=== PATIENT | female | born 1985 | race Caucasian/White ===

== ENCOUNTER 2017-03-17 09:09 | Outpatient (CLI) | payer MEDICAID | END 2017-03-17 10:57 | disposition home or self-care (01) | LOC: OBT 09:09 → L-D 09:09 → OBT 10:57 | DX: O9A.212 Injury, poisoning and certain other consequences of external causes complicating pregnancy, second trimester (principal); Z3A.24 24 weeks gestation of pregnancy | CPT/HCPCS: 36415; 76815; 85460 ==

== ENCOUNTER 2017-04-07 19:43 | Inpatient (IN) | payer MEDICAID ==
[2017-04-07 22:01] LABS: ADD MAN DIFF? NO
[2017-04-07 22:04] LABS: WHITE BLOOD COUNT 16.9 10^3/ul (4.8-10.8)
[2017-04-07 22:04] LABS: BASOPHIL # 0.1 10^3/ul (0.0-0.1); BASOPHILS % 0.3 % (0.0-2.0); EOSINOPHILS # 0.1 10^3/ul (0.0-0.5); EOSINOPHILS % 0.4 % (0.0-7.0); HEMATOCRIT 34.3 % (37.0-47.0); HEMOGLOBIN 11.5 g/dl (12.0-16.0); LYMPHOCYTES % 17.5 % (15.0-51.0); MEAN CORPUSCULAR HGB CONC 33.5 g/dl (32.0-37.0); MEAN CORPUSCULAR VOLUME 92.5 fl (82.0-101.0); MEAN PLATELET VOLUME 10.2 fl (7.4-10.4); MONOCYTE # 1.5 10^3/ul (0.3-0.9); MONOCYTES % 8.8 % (0.0-11.0); NEUTROPHIL # 12.1 10^3/ul (1.6-7.5); NEUTROPHILS % 71.6 % (39.0-77.0); PLATELET COUNT 264 10^3/UL (140-415); RED BLOOD COUNT 3.71 10^6/ul (4.20-5.40)
[2017-04-07 22:13] LABS: ADD UMIC YES; UR ASCORBIC ACID NEGATIVE (NEGATIVE); UR BACTERIA FEW /HPF (NONE SEEN); UR BILIRUBIN (Dip) NEGATIVE (NEGATIVE); UR BLOOD (Dip) NEGATIVE (NEGATIVE); UR CLARITY CLOUDY (CLEAR); UR COLOR YELLOW (YELLOW); UR GLUCOSE (Dip) NEGATIVE (NEGATIVE); UR KETONES (Dip) NEGATIVE (NEGATIVE); UR LEUKOCYTE ESTERASE (Dip) 3+ Leu/ul (NEGATIVE); UR NITRITE (Dip) POSITIVE (NEGATIVE); UR RBC 3 /HPF (0-5); UR SPECIFIC GRAVITY (Dip) 1.013 (1.003-1.030); UR SQUAMOUS EPITHELIAL CELL FEW /HPF (FEW); UR TOTAL PROTEIN (Dip) 1+ mg/dl (NEGATIVE); UR UROBILINOGEN (Dip) 1+ mg/dL (NEGATIVE); UR WBC 84 /HPF (0-5)
[2017-04-07 22:24] LABS: ALANINE AMINOTRANSFERASE 32 IU/L (13-69); ALBUMIN 3.4 g/dl (3.3-4.9); ALBUMIN/GLOBULIN RATIO 0.94; ALKALINE PHOSPHATASE 125 IU/L (42-121); ANION GAP 12 (8-16); ASPARTATE AMINO TRANSFERASE 26 IU/L (15-46); BILIRUBIN,INDIRECT 0.1 mg/dl (0-1.1); BILIRUBIN,TOTAL 0.1 mg/dl (0.2-1.3); BLOOD UREA NITROGEN 6 mg/dl (7-20); CALCIUM 9.3 mg/dl (8.4-10.2); CARBON DIOXIDE 23 mmol/L (21-31); CHLORIDE 104 mmol/L (97-110); CREATININE 0.48 mg/dl (0.44-1.00); GLUCOSE 87 mg/dl (70-220); POTASSIUM 3.9 mmol/L (3.5-5.1); SODIUM 135 mmol/L (135-144)
[2017-04-08] MEDS: SOD CHLORIDE 0.9% 1,000 ML IV ×3 (00:54→23:13)
[2017-04-08] MEDS: MAGNESIUM SULFATE 4 GM/100 ML 100 ML IV (00:56)
[2017-04-08] MEDS: BETAMET NA PHOS/AC(6 MG/ML) 5ML INJ IM (00:58)
[2017-04-08] MEDS: CEFTRIAXONE 1 GM/50 ML (PMX) 50 ML IV (01:28)
[2017-04-08] MEDS: MAGNESIUM SULFATE 20 GM/500 ML 500 ML IV ×2 (01:30→11:44)
[2017-04-08 08:25] LABS: MAGNESIUM 5.4 mg/dl (1.7-2.5)
[2017-04-08] MEDS ORDERED: PRENATAL VITAMIN PO (09:00)
[2017-04-08 12:34] LABS: MAGNESIUM 5.8 mg/dl (1.7-2.5)
[2017-04-08 20:07] LABS: MAGNESIUM 5.5 mg/dl (1.7-2.5)
[2017-04-09] MEDS: CEFTRIAXONE 1 GM/50 ML (PMX) 50 ML IV (00:17)
[2017-04-09] MEDS: SOD CHLORIDE 0.9% 1,000 ML IV ×4 (00:17→22:58)
[2017-04-09] MEDS: BETAMET NA PHOS/AC(6 MG/ML) 5ML INJ IM (00:18)
[2017-04-09] MEDS: MAGNESIUM SULFATE 20 GM/500 ML 500 ML IV (01:36)
[2017-04-09 01:53] LABS: MAGNESIUM 4.7 mg/dl (1.7-2.5)
[2017-04-09 08:44] LABS: MAGNESIUM 4.6 mg/dl (1.7-2.5)
[2017-04-09 14:59] LABS: MAGNESIUM 4.4 mg/dl (1.7-2.5)
[2017-04-09] MEDS: NIFEdipine 10 MG CAP PO (18:26)
[2017-04-10] MEDS: CEFTRIAXONE 1 GM/50 ML (PMX) 50 ML IV (00:03)
[2017-04-10] MEDS: NIFEdipine 10 MG CAP PO ×5 (00:04→23:38)
[2017-04-10] MEDS: NITROFURANTOIN (SR) 100 MG CAP PO ×2 (11:16→20:49)
[2017-04-11] MEDS: NIFEdipine 10 MG CAP PO ×4 (06:03→23:53)
[2017-04-11] MEDS ORDERED: PRENATAL VITAMIN PO (08:00)
[2017-04-11] MEDS: PRENATAL VITAMIN PO (08:42)
[2017-04-11] MEDS: NITROFURANTOIN (SR) 100 MG CAP PO ×2 (08:42→21:12)
[2017-04-11] MEDS: FERROUS SULFATE (EC) 325 MG TAB PO (08:42)
[2017-04-12] MEDS: NIFEdipine 10 MG CAP PO ×4 (06:00→23:38)
[2017-04-12] MEDS: NITROFURANTOIN (SR) 100 MG CAP PO ×2 (09:34→21:00)
[2017-04-12] MEDS: FERROUS SULFATE (EC) 325 MG TAB PO (09:34)
[2017-04-12] MEDS: PRENATAL VITAMIN PO (09:34)
[2017-04-13] MEDS: NIFEdipine 10 MG CAP PO ×4 (05:49→23:48)
[2017-04-13] MEDS: NITROFURANTOIN (SR) 100 MG CAP PO ×2 (08:48→20:46)
[2017-04-13] MEDS: PRENATAL VITAMIN PO (08:48)
[2017-04-13] MEDS: FERROUS SULFATE (EC) 325 MG TAB PO (08:48)
[2017-04-13 11:45] LABS: ADD MAN DIFF? NO
[2017-04-13 11:51] LABS: WHITE BLOOD COUNT 15.4 10^3/ul (4.8-10.8)
[2017-04-13 11:51] LABS: BASOPHILS % 0.3 % (0.0-2.0); EOSINOPHILS # 0.1 10^3/ul (0.0-0.5); EOSINOPHILS % 0.7 % (0.0-7.0); HEMOGLOBIN 10.9 g/dl (12.0-16.0); LYMPHOCYTES # 2.8 10^3/ul (0.8-2.9); LYMPHOCYTES % 17.9 % (15.0-51.0); MEAN CORPUSCULAR HEMOGLOBIN 30.4 pg (29.0-33.0); MEAN CORPUSCULAR VOLUME 92.2 fl (82.0-101.0); MEAN PLATELET VOLUME 10.5 fl (7.4-10.4); MONOCYTE # 1.2 10^3/ul (0.3-0.9); MONOCYTES % 7.8 % (0.0-11.0); NEUTROPHIL # 10.9 10^3/ul (1.6-7.5); NEUTROPHILS % 70.8 % (39.0-77.0); PLATELET COUNT 305 10^3/UL (140-415); RED BLOOD COUNT 3.58 10^6/ul (4.20-5.40); RED CELL DISTRIBUTION WIDTH 14.3 % (11.5-14.5)
[2017-04-14] MEDS: NIFEdipine 10 MG CAP PO ×4 (05:57→23:56)
[2017-04-14] MEDS: PRENATAL VITAMIN PO (08:36)
[2017-04-14] MEDS: NITROFURANTOIN (SR) 100 MG CAP PO ×2 (08:36→21:20)
[2017-04-14] MEDS: FERROUS SULFATE (EC) 325 MG TAB PO (08:36)
[2017-04-15] MEDS: NIFEdipine 10 MG CAP PO ×4 (05:56→23:55)
[2017-04-15] MEDS: NITROFURANTOIN (SR) 100 MG CAP PO ×2 (08:30→21:23)
[2017-04-15] MEDS: PRENATAL VITAMIN PO (08:30)
[2017-04-15] MEDS: FERROUS SULFATE (EC) 325 MG TAB PO (08:30)
[2017-04-16] MEDS: NIFEdipine 10 MG CAP PO ×3 (05:55→18:02)
[2017-04-16] MEDS: PRENATAL VITAMIN PO (09:07)
[2017-04-16] MEDS: NITROFURANTOIN (SR) 100 MG CAP PO ×2 (09:07→21:21)
[2017-04-16] MEDS: FERROUS SULFATE (EC) 325 MG TAB PO (09:07)
[2017-04-17] MEDS: NIFEdipine 10 MG CAP PO ×4 (00:10→18:18)
[2017-04-17] MEDS: NITROFURANTOIN (SR) 100 MG CAP PO ×2 (09:30→21:17)
[2017-04-17] MEDS: FERROUS SULFATE (EC) 325 MG TAB PO (09:30)
[2017-04-17] MEDS: PRENATAL VITAMIN PO (09:30)
[2017-04-18] MEDS: NIFEdipine 10 MG CAP PO ×4 (00:10→18:08)
[2017-04-18] MEDS: FERROUS SULFATE (EC) 325 MG TAB PO (08:54)
[2017-04-18] MEDS: PRENATAL VITAMIN PO (08:54)
[2017-04-18] MEDS: NITROFURANTOIN (SR) 100 MG CAP PO ×2 (08:54→21:12)
[2017-04-19] MEDS: NIFEdipine 10 MG CAP PO ×5 (00:09→23:48)
[2017-04-19] MEDS: FERROUS SULFATE (EC) 325 MG TAB PO (08:57)
[2017-04-19] MEDS: NITROFURANTOIN (SR) 100 MG CAP PO (08:57)
[2017-04-19] MEDS: PRENATAL VITAMIN PO (08:57)
[2017-04-20] MEDS: NIFEdipine 10 MG CAP PO ×3 (05:58→17:36)
[2017-04-20] MEDS: PRENATAL VITAMIN PO (08:30)
[2017-04-20] MEDS: FERROUS SULFATE (EC) 325 MG TAB PO (08:30)
[2017-04-21] MEDS: NIFEdipine 10 MG CAP PO ×5 (05:43→23:48)
[2017-04-21] MEDS: FERROUS SULFATE (EC) 325 MG TAB PO (08:31)
[2017-04-21] MEDS: PRENATAL VITAMIN PO (08:31)
[2017-04-22] MEDS: NIFEdipine 10 MG CAP PO ×4 (05:37→23:54)
[2017-04-22] MEDS: FERROUS SULFATE (EC) 325 MG TAB PO (09:33)
[2017-04-22] MEDS: PRENATAL VITAMIN PO (09:33)
[2017-04-23] MEDS: NIFEdipine 10 MG CAP PO ×3 (06:08→17:42)
[2017-04-23] MEDS: PRENATAL VITAMIN PO (09:16)
[2017-04-23] MEDS: FERROUS SULFATE (EC) 325 MG TAB PO (09:16)
== END 2017-04-23 18:15 | disposition left against medical advice (07) | DRG 781 ==
LOC: OBT 19:43 → L-D 19:45 → PP1 04-09 20:06 → L-D 19:52
DX: O23.03 Infections of kidney in pregnancy, third trimester (principal); O26.873 Cervical shortening, third trimester; Z3A.30 30 weeks gestation of pregnancy
CPT/HCPCS: 36415; 76815; 76817; 76818; 80053; 81001; 82731; 83735; 85025; 87086

== ENCOUNTER 2017-06-19 21:50 | Inpatient (IN) | payer MEDICAID ==
[2017-06-19] MEDS ORDERED: CARBOPROST 250 MCG INJ IM (23:00)
[2017-06-19] MEDS ORDERED: CEFAZOLIN 2 GM/50 ML (PMX) 50 ML IV (23:00)
[2017-06-19] MEDS ORDERED: MISOPROSTOL 200 MCG TAB PR (23:00)
[2017-06-19] MEDS ORDERED: METHYLERGONOVINE 0.2 MG INJ IM (23:00)
[2017-06-19] MEDS ORDERED: OXYTOCIN 30 UNITS/LR 500 ML IV (23:00)
[2017-06-19] MEDS: LACTATED RINGER'S 1,000 ML IV (23:14)
[2017-06-19] MEDS: FAMOTIDINE 20 MG INJ IV (23:34)
[2017-06-19] MEDS: METOCLOPRAMIDE 10 MG INJ IV (23:34)
[2017-06-19] MEDS: CITRIC ACID/SODIUM CITRATE 15 ML CUP PO (23:35)
[2017-06-19 23:59] LABS: ADD MAN DIFF? NO
[2017-06-20] MEDS: LACTATED RINGER'S 1,000 ML IV ×2 (00:09→14:48)
[2017-06-20 00:11] LABS: WHITE BLOOD COUNT 15.8 10^3/ul (4.8-10.8)
[2017-06-20 00:11] LABS: BASOPHIL # 0.1 10^3/ul (0.0-0.1); BASOPHILS % 0.4 % (0.0-2.0); EOSINOPHILS # 0.1 10^3/ul (0.0-0.5); EOSINOPHILS % 0.5 % (0.0-7.0); HEMATOCRIT 35.4 % (37.0-47.0); HEMOGLOBIN 11.8 g/dl (12.0-16.0); LYMPHOCYTES # 3.3 10^3/ul (0.8-2.9); MEAN CORPUSCULAR HEMOGLOBIN 29.6 pg (29.0-33.0); MEAN CORPUSCULAR HGB CONC 33.3 g/dl (32.0-37.0); MEAN CORPUSCULAR VOLUME 88.9 fl (82.0-101.0); MONOCYTE # 1.2 10^3/ul (0.3-0.9); MONOCYTES % 7.3 % (0.0-11.0); NEUTROPHILS % 69.4 % (39.0-77.0); NUCLEATED RED BLOOD CELLS% 0.2 /100WBC (0.0-0.0); PLATELET COUNT 187 10^3/UL (140-415); RED BLOOD COUNT 3.98 10^6/ul (4.20-5.40); RED CELL DISTRIBUTION WIDTH 15.1 % (11.5-14.5)
[2017-06-20 00:22] LABS: INR 0.93; PARTIAL THROMBOPLASTIN TIME 29.7 Sec (25.0-35.0); PROTIME 12.5 Sec (11.9-14.9)
[2017-06-20] MEDS ORDERED: FENTAnyl 50 MCG/ML VIAL (00:36)
[2017-06-20] MEDS ORDERED: morphine SULFATE/PF (10 MG/10 ML) INJ (00:37)
[2017-06-20] MEDS ORDERED: BUPIVACAINE 0.75%/DEXT (SPINAL) 2 ML INJ (00:37)
[2017-06-20] MEDS ORDERED: PHENYLephrine (100 MCG/ML) 5ML SYG ×2 (00:54→01:29)
[2017-06-20] MEDS ORDERED: ONDANSETRON 4 MG INJ (00:56)
[2017-06-20 01:01] LABS: HEPATITIS B SURFACE ANTIGEN NEGATIVE (NEGATIVE)
[2017-06-20] MEDS ORDERED: FENTAnyl 50 MCG/ML VIAL IV (01:30)
[2017-06-20] MEDS ORDERED: MEPERIDINE 25 MG INJ IV (01:30)
[2017-06-20] MEDS ORDERED: NALOXONE (0.4 MG/ML) INJ IV (01:30)
[2017-06-20] MEDS ORDERED: HYDROmorphONE (0.2 MG/ML) 10ML SYG IV (01:30)
[2017-06-20] MEDS ORDERED: ONDANSETRON 4 MG INJ IV ×2 (01:30)
[2017-06-20] MEDS ORDERED: ZOLPIDEM 5 MG TAB PO (01:30)
[2017-06-20] MEDS ORDERED: HYDROmorphONE 0.5 MG/0.5 ML SYG IV (01:30)
[2017-06-20] MEDS ORDERED: PROCHLORPERAZINE 10 MG INJ IV (01:30)
[2017-06-20] MEDS ORDERED: DIPHENHYDRAMINE 50 MG INJ IV ×2 (01:30)
[2017-06-20] MEDS ORDERED: MEPERIDINE 100 MG INJ (01:36)
[2017-06-20] MEDS ORDERED: OXYTOCIN 30 UNITS/LR 500 ML IV ×2 (01:39→04:30)
[2017-06-20] MEDS: OXYTOCIN 30 UNITS/LR 500 ML IV ×3 (03:04→10:15)
[2017-06-20] MEDS: KETOROLAC 30 MG INJ IV ×4 (04:01→23:56)
[2017-06-20] MEDS ORDERED: MISOPROSTOL 200 MCG TAB PR (04:30)
[2017-06-20] MEDS ORDERED: CARBOPROST 250 MCG INJ IM (04:30)
[2017-06-20] MEDS ORDERED: METHYLERGONOVINE 0.2 MG INJ IM (04:30)
[2017-06-20 08:26] LABS: ADD MAN DIFF? NO
[2017-06-20 08:33] LABS: WHITE BLOOD COUNT 17.8 10^3/ul (4.8-10.8)
[2017-06-20 08:33] LABS: BASOPHIL # 0.1 10^3/ul (0.0-0.1); BASOPHILS % 0.3 % (0.0-2.0); EOSINOPHILS % 0.1 % (0.0-7.0); HEMATOCRIT 32.2 % (37.0-47.0); HEMOGLOBIN 10.7 g/dl (12.0-16.0); LYMPHOCYTES % 16.6 % (15.0-51.0); MEAN CORPUSCULAR HEMOGLOBIN 29.6 pg (29.0-33.0); MEAN CORPUSCULAR HGB CONC 33.2 g/dl (32.0-37.0); MEAN CORPUSCULAR VOLUME 89.2 fl (82.0-101.0); MEAN PLATELET VOLUME 12.6 fl (7.4-10.4); MONOCYTES % 5.7 % (0.0-11.0); NEUTROPHIL # 13.6 10^3/ul (1.6-7.5); NEUTROPHILS % 76.3 % (39.0-77.0); PLATELET COUNT 174 10^3/UL (140-415); RED BLOOD COUNT 3.61 10^6/ul (4.20-5.40)
[2017-06-20] MEDS: SENNA/DOCUSATE NA (8.6MG/50MG) TAB PO ×2 (08:59→21:00)
[2017-06-20] MEDS: CEFAZOLIN 1 GM/50 ML (PMX) 50 ML IVPB (09:00)
[2017-06-20] MEDS: LANOLIN 7 GM TUBE TOP (11:23)
[2017-06-20] MEDS: HYDROmorphONE 0.5 MG/0.5 ML SYG IV ×2 (15:06→21:21)
[2017-06-20 15:50] LABS: RAPID PLASMA REAGIN NONREACTIVE (NR)
[2017-06-21] MEDS ORDERED: OXYCODONE/ACETAMINOPHEN (5/325) TAB PO (00:48)
[2017-06-21] MEDS ORDERED: HYDROCODONE/APAP (5/325) TAB PO ×2 (00:48)
[2017-06-21] MEDS: IBUPROFEN 600 MG TAB PO ×3 (05:49→18:17)
[2017-06-21] MEDS: OXYCODONE/ACETAMINOPHEN (5/325) TAB PO ×2 (07:58→12:20)
[2017-06-21] MEDS: SENNA/DOCUSATE NA (8.6MG/50MG) TAB PO ×2 (09:59→20:30)
[2017-06-21] MEDS: NA PHOSPHATE/BIPHOS 133 ML ENEMA PR (18:17)
[2017-06-22] MEDS: IBUPROFEN 600 MG TAB PO ×5 (00:21→23:58)
[2017-06-22] MEDS: DIPHTH/TET/ACEL PERTUSS (ADULT) 0.5 ML VIAL IM* (09:00)
[2017-06-22] MEDS: SENNA/DOCUSATE NA (8.6MG/50MG) TAB PO ×2 (09:00→21:00)
[2017-06-22 11:34] LABS: ADD MAN DIFF? NO
[2017-06-22 11:39] LABS: BASOPHILS % 0.2 % (0.0-2.0); EOSINOPHILS # 0.1 10^3/ul (0.0-0.5); EOSINOPHILS % 0.5 % (0.0-7.0); HEMATOCRIT 30.7 % (37.0-47.0); LYMPHOCYTES # 2.2 10^3/ul (0.8-2.9); LYMPHOCYTES % 11.8 % (15.0-51.0); MEAN CORPUSCULAR HEMOGLOBIN 29.3 pg (29.0-33.0); MEAN CORPUSCULAR HGB CONC 32.6 g/dl (32.0-37.0); MEAN PLATELET VOLUME 11.5 fl (7.4-10.4); MONOCYTE # 0.9 10^3/ul (0.3-0.9); MONOCYTES % 5.1 % (0.0-11.0); NEUTROPHIL # 14.9 10^3/ul (1.6-7.5); NEUTROPHILS % 81.4 % (39.0-77.0); PLATELET COUNT 245 10^3/UL (140-415); RED BLOOD COUNT 3.41 10^6/ul (4.20-5.40); RED CELL DISTRIBUTION WIDTH 15.6 % (11.5-14.5)
[2017-06-22 11:39] LABS: WHITE BLOOD COUNT 18.3 10^3/ul (4.8-10.8)
[2017-06-23] MEDS: IBUPROFEN 600 MG TAB PO ×2 (05:49→11:23)
[2017-06-23] MEDS: SENNA/DOCUSATE NA (8.6MG/50MG) TAB PO (08:52)
[2017-06-23 11:23] LABS: ADD MAN DIFF? NO
[2017-06-23 11:29] LABS: BASOPHIL # 0.1 10^3/ul (0.0-0.1); BASOPHILS % 0.3 % (0.0-2.0); EOSINOPHILS # 0.3 10^3/ul (0.0-0.5); EOSINOPHILS % 1.4 % (0.0-7.0); HEMATOCRIT 31.8 % (37.0-47.0); HEMOGLOBIN 10.3 g/dl (12.0-16.0); LYMPHOCYTES # 2.2 10^3/ul (0.8-2.9); LYMPHOCYTES % 12.1 % (15.0-51.0); MEAN CORPUSCULAR HEMOGLOBIN 29.5 pg (29.0-33.0); MEAN CORPUSCULAR HGB CONC 32.4 g/dl (32.0-37.0); MEAN CORPUSCULAR VOLUME 91.1 fl (82.0-101.0); MEAN PLATELET VOLUME 11.2 fl (7.4-10.4); MONOCYTES % 5.4 % (0.0-11.0); NEUTROPHIL # 14.4 10^3/ul (1.6-7.5); NEUTROPHILS % 79.9 % (39.0-77.0); PLATELET COUNT 316 10^3/UL (140-415); RED BLOOD COUNT 3.49 10^6/ul (4.20-5.40); RED CELL DISTRIBUTION WIDTH 15.9 % (11.5-14.5)
== END 2017-06-23 12:35 | disposition home or self-care (01) | DRG 766 ==
LOC: OBT 21:50 → L-D 06-20 00:51 → PP1 06-20 04:44 → OBT 22:05 → L-D 22:05
PROVIDERS: Obstetrics & Gynecology
PROC: 10D00Z1 Extraction of Products of Conception, Low, Open Approach (ICD-10-PCS; principal; 2017-06-20 01:00)
PROC: 0UL70ZZ Occlusion of Bilateral Fallopian Tubes, Open Approach (ICD-10-PCS; 2017-06-20 01:00)
PROC: 3E033VJ Introduction of Other Hormone into Peripheral Vein, Percutaneous Approach (ICD-10-PCS; 2017-06-20 01:00)
DX: O34.211 Maternal care for low transverse scar from previous cesarean delivery (principal); Z30.2 Encounter for sterilization; Z3A.38 38 weeks gestation of pregnancy; Z37.0 Single live birth
CPT/HCPCS: 85025; 85610; 85730; 86592; 86850; 86900; 86901; 87086; 87340; 88302; 99464